=== PATIENT | female | born 1985 | race Caucasian/White ===

== ENCOUNTER 2021-11-16 22:28 | Emergency (ER) | payer OTHER, SELFPAY ==
[2021-11-16 22:35] VITALS: BP 140/79; PULSE 81; RESP 18; TEMP 36.6; O2SAT 99
[2021-11-17 00:05] LABS: COVID19 - ADMIT (NP swab/PCR) POSITIVE (Negative)
--- NOTE | 2021-11-17 01:44 | ED.RECABL ---
HPI - Recheck/Abnormal Lab/Rx General Chief Complaint: Recheck/Abnormal Lab/Rx Stated Complaint: needs covid for wrok Time Seen by Provider: 11/17/21 01:42 History of Present Illness HPI narrative: Patient is a 36-year-old female vaccinated against COVID presenting with 3 days of sore throat body aches and bilateral ear pain. She had a rapid test that was positive for COVID but does need PCR for work she has no shortness of breath. Related Data Home Medications Medication Instructions Recorded Confirmed phentermine 37.5 mg capsule 37.5 mg PO DAILY 11/18/18 12/30/20 zolpidem 5 mg tablet 5 mg PO BEDTIME PRN 11/18/18 12/30/20 Previous Rx's Medication Instructions Recorded cyclobenzaprine 10 mg tablet 10 mg PO Q8H #30 tab 12/30/20 Allergies Allergy/AdvReac Type Severity Reaction Status Date / Time morphine AdvReac Itching, Verified 12/30/20 18:12 Body Tremors pregabalin [From Lyrica] AdvReac Headaches Verified 12/30/20 18:12 Review of Systems Review of Systems Narrative: GENERAL: See HEENT: see HPI RESPIRATORY: Denies dyspnea, cough, wheezing CARDIOVASCULAR: Denies chest pain, palpitations GASTROINTESTINAL: Denies nausea, vomiting MUSCULOSKELETAL: Denies extremity pain, injury SKIN: No rash, no laceration, no pruritus NEUROLOGIC: Denies weakness, dizziness, headache, numbness 8 point review of systems is negative except for those stated above and HPI Patient History Medical History Back strain Insomnia Obesity (BMI 30-39.9) Obstructive sleep apnea Polycystic ovarian syndrome Social History Smoking Status: Current every day smoker Smoking Status: Current every day smoker Exam Initial Vital Signs Initial Vital Signs: GENERAL: Well-appearing, well-nourished and in no acute distress. CARDIOVASCULAR: peripheral pulses in tact, cap refill <2 sec RESPIRATORY: No respiratory distress, speaks in full sentences without difficulty EXTREMITIES: Normal range of motion, no clubbing or edema. Neurovascularly intact NEUROLOGICAL: Cranial nerves II through XII grossly intact. Normal gait and speech. SKIN: Warm, dry, no petechiae, no rashes or lesions. Course Orders Ordered: ED Orders 11/16/21 23:05 COVID19 - ADMIT (SITE SURVEYOR swab/PCR) Stat MDM - Recheck/Abnormal Lab/Rx Lab Data Labs: Lab Results 11/16/21 Range/Units 23:05 SARS-CoV-2 (PCR) Positive H (Negative) Discharge Plan Departure Patient Disposition: Home Clinical Impression: COVID-19 Instructions: DI for COVID-19 (Suspected or Confirmed ) Activity Restrictions/Additional Instructions: * if you have not yet been vaccinated is still recommended and encouraged that you do so once your infection has passed *Follow up with your primary provider in 2-3 days or call [phone] AT HOME: -Monitor oxygen with pulse oximeter. If less than 90% for more than 1 hour please return to emergency department -I recommend lying on stomach for side rather than back, it has been proven to increase oxygen levels -Wash hands frequently. -Stay isolated at home please follow the isolation instructions below. -Increase fluid intake. -you may take Tylenol as directed if needed for pain or fever EMERGENCY warning signs for COVID-19: - Difficulty breathing or shortness of breath, oxygen less than 90% - Persistent pain or pressure in the chest - New confusion or inability to arouse - Bluish lips or face CDC Guidelines for home isolation: - Stay away from others - Limit contact with pets and animals: If you must care for a pet, wash your hands before and after interacting with them - Wear a mask while in public all places - Cover your mouth and nose with a tissue when you cough or sneeze. Dispose of tissues in a lined trash can and wash your hands immediately with soap and water for at least 20 seconds. If soap and water are not available, clean hands with alcohol-based hand sanitary engineering teacher that contains at least 60% alcohol. - Clean your hands often with soap and water for at least 20 seconds - Avoid touching your eyes, nose and mouth with unwashed hands - Do not share dishes, drinking glasses, cups, eating utensils, towels, or bedding with other people in your home. After using these items, wash them thoroughly with soap and water or put in the staffing branch manager. - Clean high-touch surfaces in your isolation area (?sick room? and bathroom) every day; let a caregiver clean and disinfect high-touch surfaces in other areas of the home. Clean the area or item with soap and water or another detergent if it is dirty. Then, use a household disinfectant. Prescriptions: No Action cyclobenzaprine 10 mg tablet 10 mg PO Q8H Qty: 30 0RF zolpidem 5 mg tablet 5 mg PO BEDTIME PRN0RF phentermine 37.5 mg capsule 37.5 mg PO DAILY 0RF Referrals: Sobeida Mckeon MD [Primary Care Provider] -
== END 2021-11-17 01:55 | disposition home or self-care (01) ==
PROVIDERS: Emergency Provider Emergency Medicine; PCP Internal Medicine
DX: U07.1 COVID-19 (principal); F17.200 Nicotine dependence, unspecified, uncomplicated
CPT/HCPCS: 87635; 99281; C9803

== ENCOUNTER 2024-03-13 03:26 | Emergency (ER) | payer OTHER, SELFPAY ==
[2024-03-13 03:30] VITALS: BP 147/84; PULSE 92; RESP 16; TEMP 36.4; O2SAT 100; BMI 33.0
--- NOTE | 2024-03-13 03:43 | ED.BACK ---
HPI - Back Pain/Injury General Chief Complaint: Back Pain/Injury Stated Complaint: hurt back at work Time Seen by Provider: 03/13/24 03:28 Source: patient History of Present Illness HPI Narrative: 39-year-old female presents from her place of work for evaluation of lumbar back injury. 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 When she was trying to take out the trash the pain worsened. She states that she is here for general evaluation after workplace incident. Denies bowel or bladder incontinence, denies saddle anesthesia. History of spinal stenosis previously. Related Data Home Medications Medication Instructions Recorded Confirmed phentermine 37.5 mg capsule 37.5 mg PO DAILY 11/18/18 12/30/20 zolpidem 5 mg tablet 5 mg PO BEDTIME PRN 11/18/18 12/30/20 Previous Rx's Medication Instructions Recorded cyclobenzaprine 10 mg tablet 10 mg PO Q8H #30 tabs 12/30/20 cyclobenzaprine 10 mg tablet 10 mg PO TID PRN muscle spasm #30 03/13/24 tabs Allergies Allergy/AdvReac Type Severity Reaction Status Date / Time morphine AdvReac Itching, Verified 12/30/20 18:12 Body Tremors pregabalin [From Lyrica] AdvReac Headaches Verified 12/30/20 18:12 Review of Systems Review of Systems Narrative: See HPI Patient History Medical History Back strain Polycystic ovarian syndrome Obstructive sleep apnea Obesity (BMI 30-39.9) Insomnia Social History Smoking Status: Current every day smoker Smoking Status: Current every day smoker Substance Use Type: marijuana Exam Initial Vital Signs Initial Vital Signs: Vital Signs Temperature 97.6 F 03/13/24 03:30 Pulse Rate 92 H 03/13/24 03:30 Respiratory Rate 16 03/13/24 03:30 Blood Pressure 147/84 H 03/13/24 03:30 Pulse Oximetry 100 03/13/24 03:30 Oxygen Delivery Method Room Air 03/13/24 03:30 Const: Awake, alert, no acute distress, nontoxic appearing MSK back: No midline tenderness, right-sided paraspinal and gluteal muscle tenderness to palpation Skin: Warm, Dry, intact, no rashes Neuro: AO x3, CN II-XII grossly intact, moves all extremities Course Vital Signs Vital signs: Vital Signs - 8 hr // 03:30 Temperature 97.6 F Pulse Rate 92 H Respiratory Rate 16 Blood Pressure 147/84 H Pulse Oximetry 100 Oxygen Delivery Method Room Air MDM - Back Pain/Injury MDM Narrative Medical decision making narrative: Patient presenting for general evaluation after straining her back at her work place. Declines any pain medications at this time. States that she has injured her back previously and knows how to manage at home. She states that this is her last day of work before her ?weekend? and she has a next several days off of work to rest and recover at home. I offered muscle relaxers, which the patient accepted. Gentle stretching exercises advised. L&I form filled out Discharge Plan Departure Patient Disposition: Home Clinical Impression: Back strain Qualifiers: Encounter type: initial encounter Qualified Code(s): S39.012A - Strain of muscle, fascia and tendon of lower back, initial encounter Instructions: DI for Back Strain or Sprain Activity Restrictions/Additional Instructions: Take Tylenol and ibuprofen as needed for pain. You may also apply ice or heating pads for comfort. Muscle relaxers has been sent to your pharmacy. Do gentle stretching exercises and light activity to help your muscles and back recover. Prescriptions: New cyclobenzaprine 10 mg tablet 10 mg PO TID PRN (Reason: muscle spasm) Qty: 30 0RF No Action cyclobenzaprine 10 mg tablet 10 mg PO Q8H Qty: 30 0RF zolpidem 5 mg tablet 5 mg PO BEDTIME PRN phentermine 37.5 mg capsule 37.5 mg PO DAILY Referrals: Sobeida Mckeon MD [Primary Care Provider] - Stand Alone Forms: Patient Portal/API
== END 2024-03-13 03:51 | disposition home or self-care (01) ==
PROVIDERS: Emergency Provider Emergency Medicine; PCP Internal Medicine
DX: S39.012A Strain of muscle, fascia and tendon of lower back, initial encounter (principal); X50.0XXA Overexertion from strenuous movement or load, initial encounter; Y93.89 Activity, other specified; Y99.0 Civilian activity done for income or pay
CPT/HCPCS: 99281; 99283